=== PATIENT | female | born 1995 | race Caucasian/White ===

== ENCOUNTER 2016-02-25 10:02 | Emergency (ER) | payer OTHER ==
[~2016-02-25] VITALS: Ht 157.4 cm; Wt 60.3 kg
[~2016-02-25 10:02] MED LIST: ABILIFY5 MG PO; KEFLEX250 MG PO; TORADOL10 MG PO; VICO10300 PO; VYVANSE30 MG PO; ZITHROMAX Z PA250 MG PO
[2016-02-25 10:40] LABS: BASO % 0.2 % (0.0-1.0); EOS # 0.1 10*3/uL (0.0-0.4); EOS % 0.5 % (1.0-4.0); HEMATOCRIT 34.2 % (37.0-47.0); HEMOGLOBIN 12.2 g/dl (12.0-16.0); IG # 0.1 10*3/uL (0.0-0.1); LYMPH # 0.8 10*3/uL (1.3-4.4); LYMPH % 5.2 % (27.0-41.0); MEAN CELL VOLUME 92.2 fl (81.0-99.0); MEAN CORPUSCULAR HGB 32.9 pg (27.0-31.0); MEAN CORPUSCULAR HGB CONC 35.7 g/dl (33.0-37.0); MEAN PLATELET VOLUME 9.9 fl (9.6-12.3); MONO # 0.8 10*3/uL (0.1-1.0); MONO % 4.8 % (3.0-9.0); NEUT # 14.1 10*3/uL (2.3-7.9); NEUT % 88.8 % (47.0-73.0); PLATELET COUNT AUTOMATED 332 10*3/uL (130-400); RED BLOOD COUNT 3.71 10*6/uL (4.10-5.10); RED CELL DISTRI WIDTH 12.2 % (0-14.5); WHITE BLOOD COUNT 15.9 10*3/uL (4.8-10.8)
[2016-02-25 10:55] LABS: ALBUMIN 3.5 gm/dl (3.1-4.5); ALKALINE PHOSPHATASE 130 U/L (45-117); BILIRUBIN, TOTAL 0.3 mg/dl (0.2-1.0); BUN 9 mg/dl (7-24); CARBON DIOXIDE 22 mmol/L (21-32); CHLORIDE 107 mmol/L (98-107); EST GLOM FILT AFRICAN AMERICAN > 60 ml/min; GLUCOSE 95 mg/dL (65-99); POTASSIUM 3.8 mmol/L (3.5-5.1); SGOT/AST 21 IU/L (3-35); SGPT/ALT 28 U/L (12-78); SODIUM 139 mmol/L (136-145); TOTAL PROTEIN 7.8 gm/dL (6.4-8.2)
[2016-02-25 11:03] LABS: BILIRUBIN 2+ (NEGATIVE); BLOOD NEGATIVE (NEGATIVE); CLARITY TURBID (CLEAR); COLOR YELLOW (YELLOW); GLUCOSE NEGATIVE (NEGATIVE); KETONE 1+ (NEGATIVE); NITRITE POSITIVE (NEGATIVE); PH 5.5 (5.0-9.0); PROTEIN 2+ (NEGATIVE); SPECIFIC GRAVITY >= 1.030 (1.005-1.030)
[2016-02-25 11:11] LABS: BACTERIA 3+; WBC 0-2 wbc/hpf (0-5)
[2016-02-25 11:12] LABS: LEUKO ESTERASE TRACE (NEGATIVE); URINE REFLEX COMMENT YES (NO)
[2016-02-25] MEDS ORDERED: REGLAN10 M1 PO (11:39)
[2016-02-25] MEDS ORDERED: MACROBID100 M1 PO (11:39)
== END 2016-02-25 11:48 | disposition home or self-care (01) ==
LOC: ED 10:02
PROVIDERS: Nurse Practitioner Family
DX: O23.41 Unspecified infection of urinary tract in pregnancy, first trimester (principal); F17.200 Nicotine dependence, unspecified, uncomplicated; Z3A.14 14 weeks gestation of pregnancy

== ENCOUNTER 2019-02-11 23:54 | Emergency (ER) | payer OTHER ==
[~2019-02-11] VITALS: Ht 162.5 cm; Wt 78.0 kg
[~2019-02-11 23:54] MED LIST changes: +ACETAMINOPHEN325 M3 PO; +MACROBID100 M1 PO; +PRENATAL ONE D1 EACH PO; +PROZAC10 MG PO; +REGLAN10 M1 PO; +VYVANSE50 MG PO
[2019-02-12] MEDS ORDERED: AUGMENTIN 875-875 MG PO (01:19)
== END 2019-02-12 01:48 | disposition home or self-care (01) ==
LOC: ED 23:54
DX: K02.63 Dental caries on smooth surface penetrating into pulp (principal); Z79.899 Other long term (current) drug therapy

== ENCOUNTER 2019-04-23 13:41 | Emergency (ER) | payer OTHER ==
[~2019-04-23] VITALS: Ht 160 cm; Wt 74.8 kg
[~2019-04-23 13:41] MED LIST changes: +AUGMENTIN 875-875 MG PO
[2019-04-23] MEDS ORDERED: AMOXICILLIN500 M2 PO (16:18)
[2019-04-23] MEDS ORDERED: DIFLUCAN150 MG PO (16:18)
== END 2019-04-23 17:10 | disposition home or self-care (01) ==
LOC: ED 13:41
DX: J20.9 Acute bronchitis, unspecified (principal); J32.9 Chronic sinusitis, unspecified; R19.7 Diarrhea, unspecified; F17.200 Nicotine dependence, unspecified, uncomplicated; Z79.2 Long term (current) use of antibiotics; Z79.899 Other long term (current) drug therapy

== ENCOUNTER → 2020-11-22 | Outpatient (CLI) | payer OTHER ==
[~2020-11-22] MED LIST changes: +AMOXICILLIN500 M2 PO; +DIFLUCAN150 MG PO
== END | disposition home or self-care (01) ==
LOC: COVID19 15:50
PROVIDERS: ATTEND Internal Medicine
DX: U07.1 COVID-19 (principal)

== ENCOUNTER → 2020-12-04 | Outpatient (CLI) | payer OTHER | END | disposition home or self-care (01) | LOC: COVID19 18:13 | PROVIDERS: ATTEND Internal Medicine | DX: Z11.52 Encounter for screening for COVID-19 (principal) ==

== ENCOUNTER → 2022-01-24 | Outpatient (CLI) | payer OTHER | END | disposition home or self-care (01) | LOC: CARD 11:07 | PROVIDERS: ATTEND Physician Assistant | DX: Z51.81 Encounter for therapeutic drug level monitoring (principal) ==

== ENCOUNTER 2022-10-04 20:45 | Emergency (ER) | payer OTHER ==
[2022-10-04 22:56] LABS: BASO # 0.1 10*3/uL (0.0-0.1); BASO % 0.5 % (0.0-1.0); EOS # 0.2 10*3/uL (0.0-0.4); EOS % 1.5 % (1.0-4.0); HEMATOCRIT 37.4 % (37.0-47.0); LYMPH # 3.7 10*3/uL (1.3-4.4); LYMPH % 35.7 % (27.0-41.0); MEAN CELL VOLUME 97.7 fl (81.0-99.0); MEAN CORPUSCULAR HGB 33.7 pg (27.0-31.0); MEAN CORPUSCULAR HGB CONC 34.5 g/dl (33.0-37.0); MEAN PLATELET VOLUME 9.9 fl (9.6-12.3); MONO # 0.7 10*3/uL (0.1-1.0); MONO % 7.2 % (3.0-9.0); NEUT # 5.7 10*3/uL (2.3-7.9); NEUT % 54.9 % (47.0-73.0); PLATELET COUNT AUTOMATED 272 10*3/uL (130-400); RED BLOOD COUNT 3.83 10*6/uL (4.10-5.10); WHITE BLOOD COUNT 10.3 10*3/uL (4.8-10.8)
[2022-10-04 23:08] LABS: ACT PARTIAL THROMBO TIME 29.2 SECONDS (20.0-32.1)
[2022-10-04 23:18] LABS: BILIRUBIN Negative (Negative); BLOOD Negative (Negative); CLARITY Clear (Clear); COLOR Yellow (Yellow); GLUCOSE Negative (Negative); KETONE Negative (Negative); LEUKO ESTERASE Negative (Negative); NITRITE Negative (Negative); PH 5.5 (4.5-8.0); SPECIFIC GRAVITY >= 1.030 (1.001-1.030)
[2022-10-04 23:20] LABS: ALKALINE PHOSPHATASE 74 U/L (46-116); BUN 10 mg/dl (9-23); CHLORIDE 111 mmol/L (98-107); LIPASE 34 U/L (12-53); POTASSIUM 3.4 mmol/L (3.4-5.1); SGPT/ALT 13 U/L (10-49); TOTAL PROTEIN 7.1 gm/dL (6.0-8.0)
[2022-10-04 23:31] LABS: EPITHELIAL CELLS 21-30
[2022-10-05] MEDS ORDERED: METRONIDAZOLE500 M1 PO (00:29)
[2022-10-05] MEDS ORDERED: CIPRO500 MG PO (00:29)
== END 2022-10-05 01:05 | disposition home or self-care (01) ==
LOC: ED 20:45
PROVIDERS: Internal Medicine
DX: K52.9 Noninfective gastroenteritis and colitis, unspecified (principal); F90.9 Attention-deficit hyperactivity disorder, unspecified type; Z90.49 Acquired absence of other specified parts of digestive tract; F17.200 Nicotine dependence, unspecified, uncomplicated

== ENCOUNTER 2023-10-23 09:25 | Emergency (ER) | payer SELFPAY ==
[~2023-10-23] VITALS: Ht 160 cm; Wt 81.6 kg
[~2023-10-23 09:25] MED LIST changes: +CIPRO500 MG PO; +METRONIDAZOLE500 M1 PO
== END 2023-10-23 10:41 | disposition home or self-care (01) ==
LOC: ED 09:25
DX: Z32.02 Encounter for pregnancy test, result negative (principal); R10.2 Pelvic and perineal pain; F90.9 Attention-deficit hyperactivity disorder, unspecified type; Z90.49 Acquired absence of other specified parts of digestive tract

== ENCOUNTER 2024-05-16 08:21 | Emergency (ER) | payer MEDICAID ==
[~2024-05-16] VITALS: Ht 157.4 cm; Wt 78.5 kg
[2024-05-16] MEDS ORDERED: ANUSOL-HC25 MG R (09:17)
== END 2024-05-16 09:35 | disposition home or self-care (01) ==
LOC: ED 08:21
DX: K64.9 Unspecified hemorrhoids (principal)